=== PATIENT | male | born 1960 | race Caucasian/White ===

== ENCOUNTER → 2017-08-18 | Outpatient (REF) | payer BC ==
[~2017-08-18] MED LIST: KET10 PO; LOR5/325 PO; MULT-885 PO
[2017-08-18 12:49] LABS: PLATELET COUNT, AUTOMATED 288 K/uL (150-450)
== END ==
PROVIDERS: ATTEND Physician Assistant Medical
DX: R07.9 Chest pain, unspecified (principal)
CPT/HCPCS: 82040; 82247; 82310; 82374; 82435; 82565; 82947; 84075; 84132; 84155; 84295; 84450; 84460; 84484; 84520; 85025; 85379

== ENCOUNTER → 2017-08-20 | Outpatient (CLI) | payer BC ==
[~2017-08-20] MED LIST changes: +ATOR40TA69 PO
--- NOTE | 2017-08-20 15:06 | EKG ---
FACILITY: [facility] - [place] PATIENT NAME: SCOTT CARPIO : [id number] MR: [id number] V: [id number] EXAM DATE: ORDERING PHYSICIAN: Carlitos TECHNOLOGIST: ELIZABETH MULLER Test Reason : CHEST DISCOMFORT Blood Pressure : / mmHG Vent. Rate : 083 BPM Atrial Rate : 083 BPM P-R Int : 188 ms QRS Dur : 148 ms QT Int : 408 ms P-R-T Axes : 060 056 040 degrees QTc Int : 479 ms Normal sinus rhythm Right bundle branch block Abnormal ECG No previous ECGs available New RBBB Confirmed by CHRISTINE ALVARADO ([id number]) on 08/21/2017 8:12:14 AM Referred By: Confirmed By:CHRISTINE ALVARADO
== END ==
LOC: RAD 14:41
PROVIDERS: ATTEND Emergency Medicine
DX: R07.9 Chest pain, unspecified (principal); R94.31 Abnormal electrocardiogram [ECG] [EKG]

== ENCOUNTER → 2017-08-28 | Outpatient (CLI) | payer BC ==
[~2017-08-28] MED LIST changes: +ASPI-1471 PO
--- NOTE | 2017-08-29 10:14 | RADIOLOGY IMAGING REPORT ---
FACILITY: [facility] - [place] PATIENT NAME: SCOTT CARPIO : [id number] MR: [id number] V: [id number] EXAM DATE: ORDERING PHYSICIAN: CHRISTINE ALVARADO TECHNOLOGIST: Lyn Bryan EXAMINATION:TWO-DIMENSIONAL ECHOCARDIOGRAPH REASON:HISTORY OF COMPLETE RIGHT BUNDLE BRANCH BLOCK. 2D Measurements (normal values in centimeters) LV endLV endRV endVent.LV PostAorticLeftPercent DiastolicSystolicDiastolicSeptumWallRootAtriumShortening (3.5-5.7)(0.9-2.6)(0.6-1.1)(0.6-1.1)(2.0-3.7)(1.9-4.0)(25-35%) [id number] STROKE VOLUME: 67 mL ESTIMATED EJECTION FRACTION:58% PARASTERNAL LONG AXIS: Overall left ventricular systolic function appears to be normal. The right ventricle appears to be mildly enlarged. The other chamber sizes are normal. Color examination of the valves in this view reveals a trace of mitral insufficiency and some aortic insufficiency present. Right ventricle appears to contract normally. The TAPSE is measured at 2.4. PARASTERNAL SHORT AXIS: Overall left ventricular systolic function appears to be normal. No wall motion abnormalities are noted. The right ventricle appears to be mildly enlarged. Color examination of the pulmonic valve revealed a trace of pulmonic insufficiency. Color examination of the tricuspid valve revealed a trace of tricuspid insufficiency present. APICAL FOUR AND TWO CHAMBER: Normal left ventricular ejection fraction. The right ventricle is mildly enlarged. Left atrium and right atrial volumes are measured within normal range at 20 and 21 ml/m2. Aortic valve area and mitral valve area both measure within normal range at 3.4 and 5.1 cm2 respectively. Tricuspid regurgitation V-max is measured at 1.38 m/sec. Estimated right atrial pressure is 3 mmHg. Some aortic insufficiency is present. SUBCOSTAL VIEW: No pericardial effusion was noted. No atrial septal or ventricular septal defects were appreciated. Doppler examination of the mitral valve in diastole does reveal the A wave greater than the E wave. IVC is normal in size. OVERALL IMPRESSION: 1. Normal left ventricular systolic function estimated ejection fraction of 58% with a grade 1/4 decrease in diastolic function. 2. Mild right ventricular enlargement with all the other chamber sizes being normal. 3. A trileaflet aortic valve with no aortic stenosis and a mild amount of aortic insufficiency. 4. A trace of pulmonic and mitral insufficiency with no other abnormalities of these valves. 5. A trace of tricuspid insufficiency with estimated right ventricular systolic pressure within normal range at 11 mmHg. 6. Right atrial volume and left atrial volumes are measured within normal ranges. Dictated by: Frantz Wallis M.D. on 08/28/2017 at 17:46 Transcribed by: DEVANG on 08/28/2017 at 20:33 Approved by: Frantz Wallis M.D. on 08/29/2017 at 10:13 [facility]
== END ==
LOC: US 02:20
PROVIDERS: ATTEND Emergency Medicine
DX: I51.7 Cardiomegaly (principal); I35.1 Nonrheumatic aortic (valve) insufficiency; I37.1 Nonrheumatic pulmonary valve insufficiency; I34.0 Nonrheumatic mitral (valve) insufficiency; I07.1 Rheumatic tricuspid insufficiency
CPT/HCPCS: 93306

== ENCOUNTER → 2017-09-09 | Outpatient (CLI) | payer BC ==
--- NOTE | 2017-09-09 16:21 | RADIOLOGY IMAGING REPORT ---
FACILITY: [facility] PATIENT NAME: Joce Ornelas : 1960 MR: [id number] V: [id number] EXAM DATE: ORDERING PHYSICIAN: CHRISTINE ALVARADO TECHNOLOGIST: Location: [facility] [place] Patient: Joce Ornelas : 1960 Visit/Account:[id number] Date of Sevice: 09/09/2017 EXAMINATION: Single Isotope SPECT Imaging with Exercise and Gated SPECT Imaging DATE OF EXAMINATION: 09/09/2017 DATE OF INTERPRETATION: 09/09/2017 REQUESTING PHYSICIAN: CHRISTINE ALVARADO INDICATION: The patient is a 56-year-old male evaluated for chest pain. PROCEDURE: After informed consent the patient received an intravenous injection of 12.1 mCi of Tc-9 9m sestamibi followed at the appropriate time interval by rest imaging. The patient then exercised a ccording to the standard [place] protocol for 7 minutes achieving 8 METS. Resting heart rate was 60 bp m with a peak heart rate of 148 bpm which is 90 % of maximal predicted heart rate for age. Blood pr essure at rest was 123 / 71; blood pressure during exercise was 199 / 81. There was no chest pain du ring exercise. Exercise was discontinued because of fatigue. Baseline EKG demonstrates sinus rhythm with right bundle branch block. There were no diagnostic EKG changes of ischemia at peak exercise. Approximately one minute and 30 seconds prior to the termination of exercise, the patient received a n intravenous injection of 30.2 mCi of Tc-99m sestamibi followed by stress imaging. RAW DATA: Examination of the summed raw data revealed a good quality study. MYOCARDIAL PERFUSION: The tomographic images demonstrate normal perfusion rest and stress. GATED IMAGES: The gated images demonstrate normal regional wall motion and thickening, LVEF 72% IMPRESSION: 1. Negative exercise stress ECG for angina or ECG changes of ischemia. Good functional capacity 8 me tabolic equivalents. 2. Normal myocardial perfusion scan. 3. Normal LV systolic function; LVEF 72%. Report Dictated By: Luis Fernando Bermeo MD at 09/09/2017 4:11 PM Report E-Signed By: Luis Fernando Bermeo MD at 09/09/2017 4:16 PM WSN:[id number]
== END ==
LOC: NUC 00:51
PROVIDERS: ATTEND Emergency Medicine
DX: I45.10 Unspecified right bundle-branch block (principal)
CPT/HCPCS: 78452; 93017; A9500

== ENCOUNTER → 2017-09-18 | Outpatient (CLI) | payer BC ==
[~2017-09-18] MED LIST changes: +OSE75 PO
== END ==
LOC: RESP 19:46
PROVIDERS: ATTEND Emergency Medicine
DX: G47.33 Obstructive sleep apnea (adult) (pediatric) (principal); G47.61 Periodic limb movement disorder; G47.36 Sleep related hypoventilation in conditions classified elsewhere; E66.9 Obesity, unspecified

== ENCOUNTER → 2017-10-24 | Outpatient (CLI) | payer BC ==
[2017-10-24 08:03] LABS: PLATELET COUNT, AUTOMATED 276 K/uL (150-450)
== END ==
LOC: LAB 07:38
PROVIDERS: ATTEND Emergency Medicine
DX: D75.1 Secondary polycythemia (principal); Z79.899 Other long term (current) drug therapy
CPT/HCPCS: 36415; 81270; 82465; 83718; 84478; 85025

== ENCOUNTER → 2017-10-30 | Outpatient (CLI) | payer BC ==
[~2017-10-30] MED LIST changes: +ESZ2 PO; +PRAM0.1225 PO
== END ==
LOC: RESP 08:00
PROVIDERS: ATTEND Emergency Medicine
DX: Z02.9 Encounter for administrative examinations, unspecified (principal)

== ENCOUNTER → 2017-11-17 | Outpatient (CLI) | payer BC ==
[~2017-11-17] MED LIST changes: -PRAM0.1225 PO
== END ==
LOC: LAB 17:02
PROVIDERS: ATTEND Emergency Medicine
DX: G47.61 Periodic limb movement disorder (principal)
CPT/HCPCS: 36415; 82607; 82746; 83540; 83550

== ENCOUNTER 2017-12-28 05:45 | Emergency (ER) | payer BC ==
[~2017-12-28 05:45] MED LIST changes: +PRAM0.1225 PO
[2017-12-28] MEDS ORDERED: NS(*) 0.9% 1000 ML BAG 1,000 ML IV ONE (06:08)
--- NOTE | 2017-12-28 06:08 | ER Report ---
History and Physical Time Seen By MD: 05:55 Hx. of Stated Complaint: RIGHT SIDED ABD. PAIN THAT STARTED AROUND 0500 12/28/17 (WINSTON GORDON MD) HPI/ROS CHIEF COMPLAINT: abdominal pain HISTORY OF PRESENT ILLNESS: This is a 57 year old male. He had onset of right sided abdominal pain this morning at about 0500. No radiation. Nothing makes it worse or better. Tried having a bowel movement without relief. No diarrhea, constipation, blood in the stool or melena. No dysuria, hematuria, frequency or urgency. No fevers or chills. Has some nausea, but no vomiting. No chest pain or shortness of breath. No history of abdominal surgeries. No h/o kidney stones. (WINSTON GORDON MD) Allergies: Coded Allergies: No Known Drug Allergies (Unverified , 05/28/13) Home Meds Active Scripts Ondansetron Hcl (ZOFRAN) 4 Mg Tablet, 4 MG PO Q8H for Nausea, #15 TAB 0 Refills Prov:EMILIE KAMARA MD 12/28/17 Oxycodone Hcl/Acetaminophen (PERCOCET 5-325 MG TABLET) 1 Each Tablet, 1 EACH PO Q6H for PAIN, #12 TAB 0 Refills Prov:EMILIE KAMARA MD 12/28/17 Atorvastatin Calcium (ATORVASTATIN CALCIUM) 40 Mg Tablet, 1 TAB PO QDAY, #90 TAB 3 Refills Prov:CHRISTINE ALVARADO MD 09/19/17 Reported Medications Aspirin (ASPIR 81) 81 Mg Tablet.dr, 81 MG PO QDAY, TAB 08/27/17 Discontinued Reported Medications [None] No Conflict Check 05/28/13 Discontinued Scripts Pramipexole Di-Hcl (MIRAPEX) 0.125 Mg Tablet, 0.125 MG PO QHS, #100 TAB Take 1 tab every night for 4 days. Increase by 1 tab every 4 days to a max of 12 tabs a night Prov:CHRISTINE ALVARADO MD 11/20/17 Oseltamivir Phosphate (TAMIFLU) 75 Mg Cap, 75 MG PO DAILY, #10 CAP Prov:CHRISTINE ALVARADO MD 09/30/17 Reviewed Nurses Notes: Yes (WINSTON GORDON MD) Hx Smoking: No Smoking Status: Never Smoker Exposure to Second Hand Smoke?: Yes (both parents smoked) Hx Substance Use Disorder: No Hx Alcohol Use: No (WINSTON GORDON MD) Constitutional Vital Sign - Last 24 Hours 12/28/17 12/28/17 12/28/17 12/28/17 05:49 05:51 06:00 06:15 Temp 97.9 Pulse 71 67 Resp 17 B/P (MAP) 134/75 134/75 (94) 124/90 (101) 124/76 (92) Pulse Ox 91 90 O2 Delivery Room Air 12/28/17 12/28/17 12/28/17 12/28/17 06:30 06:45 07:00 07:15 Pulse 70 B/P (MAP) 112/104 (107) 137/87 (104) 143/86 (105) 143/88 (106) Pulse Ox 92 12/28/17 12/28/17 07:20 07:26 Pulse 65 B/P (MAP) 139/80 (99) Pulse Ox 90 Intake and Output 12/28/17 12/28/17 12/29/17 14:59 22:59 06:59 Intake Total 1000 ml Balance 1000 ml (EMILIE KAMARA MD) Physical Exam General Appearance: The patient is alert. No acute distress. Eyes: Pupils are equal, round. No pallor, injection or icterus. ENT: Mucous membranes are moist. Respiratory: Lungs are clear to auscultation. Cardiovascular: Regular rate and rhythm. No murmurs, gallops or rubs. Gastrointestinal: Abdomen is soft, tender on the right side. Nondistended. No rebound or guarding. No masses or organomegaly. Normal active bowel sounds. No costovertebral angle tenderness with percussion. Neurological: Alert and oriented x3. Skin: Warm and dry. DIFFERENTIAL DIAGNOSIS: After history and physical exam, differential diagnosis was considered for abdominal pain including but not limited to appendicitis, cholecystitis, gastritis and urinary tract infection. (WINSTON GORDON MD) Medical Decision Making Data Points Result Diagram: 12/28/17 0600 12/28/17 0600 Laboratory Hematology Test 12/28/17 05:50 12/28/17 06:00 Urine Color Yellow Urine Clarity Clear Urine pH 5.0 pH (4.8-9.5) Urine Specific [place] 1.023 Urine Protein Negative mg/dL (NEGATIVE) Urine Glucose (UA) Negative mg/dL (NEGATIVE) Urine Ketones Negative mg/dL (NEGATIVE) Urine Blood Moderate (NEGATIVE) Urine Nitrite Negative (NEGATIVE) Urine Bilirubin Negative (NEGATIVE) Urine Urobilinogen Negative mg/dL (0.2-1.9) Urine Leukocyte Esterase Negative (NEGATIVE) Urine RBC 32 /HPF (0-2/HPF) Urine WBC 1 /HPF (0-5/HPF) Urine Squamous Epithelial Cells None /LPF (</=FEW) Urine Bacteria Negative /HPF (NONE-FEW) Urine Mucus Few /HPF (NONE-FEW) Red Blood Count 5.14 M/uL (4.00-5.60) Mean Corpuscular Volume 92.1 fL (80.0-96.0) Mean Corpuscular Hemoglobin 32.8 pg (26.0-33.0) Mean Corpuscular Hemoglobin Concent 35.6 g/dL (32.0-36.0) Red Cell Distribution Width 13.4 % (11.5-14.5) Mean Platelet Volume 6.9 fL (7.2-11.1) Neutrophils (%) (Auto) 67.9 % (39.4-72.5) Lymphocytes (%) (Auto) 18.4 % (17.6-49.6) Monocytes (%) (Auto) 7.8 % (4.1-12.4) Eosinophils (%) (Auto) 4.7 % (0.4-6.7) Basophils (%) (Auto) 1.2 % (0.3-1.4) Nucleated RBC Relative Count (auto) 0.0 /100WBC Neutrophils # (Auto) 6.3 K/uL (2.0-7.4) Lymphocytes # (Auto) 1.7 K/uL (1.3-3.6) Monocytes # (Auto) 0.7 K/uL (0.3-1.0) Eosinophils # (Auto) 0.4 K/uL (0.0-0.5) Basophils # (Auto) 0.1 K/uL (0.0-0.1) Nucleated RBC Absolute Count (auto) 0.00 K/uL Sodium Level 141 mmol/L (137-145) Potassium Level 4.0 mmol/L (3.5-5.0) Chloride Level 102 mmol/L (98-107) Carbon Dioxide Level 25 mmol/L (22-30) Blood Urea Nitrogen 14 mg/dl (9-21) Creatinine 1.10 mg/dl (0.66-1.25) Glomerular Filtration Rate Calc > 60.0 Random Glucose 127 mg/dl (75-110) Lactate 1.2 mmol/L (0.7-2.1) Calcium Level 9.6 mg/dl (8.4-10.2) Total Bilirubin 2.1 mg/dl (0.2-1.3) Aspartate Amino Transf (AST/SGOT) 29 U/L (0-35) Alanine Aminotransferase (ALT/SGPT) 45 U/L (0-56) Alkaline Phosphatase 84 U/L (0-126) C-Reactive Protein 0.6 mg/dl (<1.0) Total Protein 7.6 gm/dl (6.3-8.2) Albumin 4.3 g/dl (3.5-5.0) Amylase Level 101 U/L (0-110) Lipase 114 U/L (23-300) Chemistry Test 12/28/17 05:50 12/28/17 06:00 Urine Color Yellow Urine Clarity Clear Urine pH 5.0 pH (4.8-9.5) Urine Specific [place] 1.023 Urine Protein Negative mg/dL (NEGATIVE) Urine Glucose (UA) Negative mg/dL (NEGATIVE) Urine Ketones Negative mg/dL (NEGATIVE) Urine Blood Moderate (NEGATIVE) Urine Nitrite Negative (NEGATIVE) Urine Bilirubin Negative (NEGATIVE) Urine Urobilinogen Negative mg/dL (0.2-1.9) Urine Leukocyte Esterase Negative (NEGATIVE) Urine RBC 32 /HPF (0-2/HPF) Urine WBC 1 /HPF (0-5/HPF) Urine Squamous Epithelial Cells None /LPF (</=FEW) Urine Bacteria Negative /HPF (NONE-FEW) Urine Mucus Few /HPF (NONE-FEW) White Blood Count 9.3 k/uL (4.5-11.0) Red Blood Count 5.14 M/uL (4.00-5.60) Hemoglobin 16.8 g/dL (14.0-18.0) Hematocrit 47.3 % (42.0-52.0) Mean Corpuscular Volume 92.1 fL (80.0-96.0) Mean Corpuscular Hemoglobin 32.8 pg (26.0-33.0) Mean Corpuscular Hemoglobin Concent 35.6 g/dL (32.0-36.0) Red Cell Distribution Width 13.4 % (11.5-14.5) Platelet Count 261 K/uL (150-450) Mean Platelet Volume 6.9 fL (7.2-11.1) Neutrophils (%) (Auto) 67.9 % (39.4-72.5) Lymphocytes (%) (Auto) 18.4 % (17.6-49.6) Monocytes (%) (Auto) 7.8 % (4.1-12.4) Eosinophils (%) (Auto) 4.7 % (0.4-6.7) Basophils (%) (Auto) 1.2 % (0.3-1.4) Nucleated RBC Relative Count (auto) 0.0 /100WBC Neutrophils # (Auto) 6.3 K/uL (2.0-7.4) Lymphocytes # (Auto) 1.7 K/uL (1.3-3.6) Monocytes # (Auto) 0.7 K/uL (0.3-1.0) Eosinophils # (Auto) 0.4 K/uL (0.0-0.5) Basophils # (Auto) 0.1 K/uL (0.0-0.1) Nucleated RBC Absolute Count (auto) 0.00 K/uL Glomerular Filtration Rate Calc > 60.0 Lactate 1.2 mmol/L (0.7-2.1) Calcium Level 9.6 mg/dl (8.4-10.2) Total Bilirubin 2.1 mg/dl (0.2-1.3) Aspartate Amino Transf (AST/SGOT) 29 U/L (0-35) Alanine Aminotransferase (ALT/SGPT) 45 U/L (0-56) Alkaline Phosphatase 84 U/L (0-126) C-Reactive Protein 0.6 mg/dl (<1.0) Total Protein 7.6 gm/dl (6.3-8.2) Albumin 4.3 g/dl (3.5-5.0) Amylase Level 101 U/L (0-110) Lipase 114 U/L (23-300) Urinalysis Test 12/28/17 05:50 Urine Color Yellow Urine Clarity Clear Urine pH 5.0 pH (4.8-9.5) Urine Specific [place] 1.023 Urine Protein Negative mg/dL (NEGATIVE) Urine Glucose (UA) Negative mg/dL (NEGATIVE) Urine Ketones Negative mg/dL (NEGATIVE) Urine Blood Moderate (NEGATIVE) Urine Nitrite Negative (NEGATIVE) Urine Bilirubin Negative (NEGATIVE) Urine Urobilinogen Negative mg/dL (0.2-1.9) Urine Leukocyte Esterase Negative (NEGATIVE) Urine RBC 32 /HPF (0-2/HPF) Urine WBC 1 /HPF (0-5/HPF) Urine Squamous Epithelial Cells None /LPF (</=FEW) Urine Bacteria Negative /HPF (NONE-FEW) Urine Mucus Few /HPF (NONE-FEW) (EMILIE KAMARA MD) EKG/Imaging Imaging FACILITY: [facility] PATIENT NAME: Joce Ornelas : 1960 MR: [id number] V: [id number] EXAM DATE: ORDERING PHYSICIAN: WINSTON GORDON TECHNOLOGIST: Location: [facility] [place] Patient: Joce Ornelas : 1960 Visit/Account:[id number] Date of Sevice: 12/28/2017 CT of the abdomen and pelvis with contrast: Indication: Right-sided abdominal pain. Technique: Helical CT was performed through the abdomen and pelvis following IV contrast enhancement with 75 cc of Isovue-370. Multiplanar reconstructions are reviewed. One of the following dose optimization techniques was utilized in the performance of this exam: Automated exposure control; adjustment of the mA and/ or kV according to the patient's size; or use of an iterative reconstruction technique. Specific details can be referenced in the facility's radiology CT exam operational policy. Comparison: None. Lower lung calvo: There are minimal atelectatic opacities at the bases. No parenchymal consolidation or pleural effusion is identified. Liver: Normal in size and shape. There may be mild diffuse fatty infiltration. There is uniform enhancement of the venous structures. Gallbladder/biliary tree: Multiple opaque calculi are present in the neck of the gallbladder. The gallbladder does not appear distended. There is no evidence of fluid around the gallbladder. The bile ducts are normal in caliber. Pancreas: Normal in size, shape, and density. There are no signs of acute inflammation or fluid. Spleen: Normal in size, shape, and density. Adrenal glands: Within normal limits. Kidneys/urinary bladder: The kidneys are normal in size, shape, and density. There appears to be mild dilatation of the right ureter and intrarenal collecting structures. There is a 2 mm calculus on the right side of the bladder lumen, which may be recently passed from the right ureter. No additional calculi are observed in the right kidney or ureter. There are no signs of left intrarenal or ureteral calculus. The bladder is otherwise unremarkable. Intestinal structures: Unremarkable, as visualized. There are no signs of obstruction or acute inflammatory changes. The appendix appears normal. Pelvis: Unremarkable. Aorta and vascular structures: Within normal limits. Ascites or fluid collections: None seen. 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 No acute skeletal deformity is clearly identified. Impression: There is a 2 mm calculus in the bladder lumen, which may be recently passed from the right ureter. There appears to be mild dilatation of the right ureter. Multiple opaque calculi are present in the gallbladder. The gallbladder does not appear distended. Report Dictated By: mR Jc MD at 12/28/2017 7:03 AM Report E-Signed By: Rm Jc MD at 12/28/2017 7:17 AM WSN:[id number] (EMILIE KAMARA MD) ED Course/Re-evaluation ED Course 12/28/2017 7:07:04 am I'm awaiting official read of CT scan. Patient is agreeable to pain medicine at this time. Decision to Disposition Date: Dec 28, 2017 Decision to Disposition Time: 07:26 Turned Over I accepted care of the patient at [address] Gordon. Plan is to disposition pending CT scan. (EMILIE KAMARA MD) Depart Departure Latest Vital Signs Vital Signs Date Time Temp Pulse Resp B/P (MAP) Pulse Ox O2 Delivery O2 Flow Rate FiO2 12/28/17 07:26 139/80 (99) 12/28/17 07:20 65 90 12/28/17 05:49 97.9 17 Room Air (EMILIE KAMARA MD) Impression: Primary Impression: Kidney stone Condition: Improved Disposition: HOME OR SELF-CARE Referrals: CHRISTINE ALVARADO MD (PCP) 2 Days if symptoms persist New Scripts Ondansetron Hcl (ZOFRAN) 4 Mg Tablet 4 MG PO Q8H for Nausea, #15 TAB 0 Refills Prov: EMILIE KAMARA MD 12/28/17 Oxycodone Hcl/Acetaminophen (PERCOCET 5-325 MG TABLET) 1 Each Tablet 1 EACH PO Q6H for PAIN, #12 TAB 0 Refills Prov: EMILIE KAMARA MD 12/28/17 Patient Instructions: Kidney Stones (DC) Additional Instructions: Return to the emergency department if your symptoms are not controlled adequately with your pain medication. Return to the emergency department immediately if you develop fever. Follow-up with your primary care provider in 2 -3 days if symptoms persist WINSTON GORDON MD Dec 28, 2017 06:08 EMILIE KAMARA MD Dec 28, 2017 07:06
[2017-12-28 06:15] LABS: PLATELET COUNT, AUTOMATED 261 K/uL (150-450)
[2017-12-28] MEDS ORDERED: IOPAMIDOL 76% 75 ML INFUS BTL 75 ML ONE (06:20)
[2017-12-28] MEDS ORDERED: KETOROLAC 15 MG/ML VIAL IVP ONE ×2 (07:05→07:10)
--- NOTE | 2017-12-28 07:21 | RADIOLOGY IMAGING REPORT ---
FACILITY: [facility] PATIENT NAME: Joce Ornelas : 1960 MR: [id number] V: [id number] EXAM DATE: ORDERING PHYSICIAN: WINSTON IBARRA TECHNOLOGIST: Location: [facility] Patient: Joce Ornelas : 1960 Visit/Account:[id number] Date of Sevice: 12/28/2017 CT of the abdomen and pelvis with contrast: Indication: Right-sided abdominal pain. Technique: Helical CT was performed through the abdomen and pelvis following IV contrast enhancement with 75 cc of Isovue-370. Multiplanar reconstructions are reviewed. One of the following dose optimization techniques was utilized in the performance of this exam: Autom ated exposure control; adjustment of the mA and/or kV according to the patient's size; or use of an i terative reconstruction technique. Specific details can be referenced in the facility's radiology CT exam operational policy. Comparison: None. Lower lung calvo: There are minimal atelectatic opacities at the bases. No parenchymal consolidation or pleural effusion is identified. Liver: Normal in size and shape. There may be mild diffuse fatty infiltration. There is uniform enhan cement of the venous structures. Gallbladder/biliary tree: Multiple opaque calculi are present in the neck of the gallbladder. The gal lbladder does not appear distended. There is no evidence of fluid around the gallbladder. The bile du cts are normal in caliber. Pancreas: Normal in size, shape, and density. There are no signs of acute inflammation or fluid. Spleen: Normal in size, shape, and density. Adrenal glands: Within normal limits. Kidneys/urinary bladder: The kidneys are normal in size, shape, and density. There appears to be mild dilatation of the right ureter and intrarenal collecting structures. There i s a 2 mm calculus on the right side of the bladder lumen, which may be recently passed from the right ureter. No additional calculi are observed in the right kidney or ureter. There are no signs of left intrarenal or ureteral calculus. The bladder is otherwise unremarkable. Intestinal structures: Unremarkable, as visualized. There are no signs of obstruction or acute inflam matory changes. The appendix appears normal. Pelvis: Unremarkable. Aorta and vascular structures: Within normal limits. Ascites or fluid collections: None seen. 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 No acute skeletal deformity is clearly identified. Impression: There is a 2 mm calculus in the bladder lumen, which may be recently passed from the righ t ureter. There appears to be mild dilatation of the right ureter. Multiple opaque calculi are present in the gallbladder. The gallbladder does not appear distended. Report Dictated By: Rm Jc MD at 12/28/2017 7:03 AM Report E-Signed By: Rm Jc MD at 12/28/2017 7:17 AM WSN:[id number]
[2017-12-28] MEDS ORDERED: OXYC-865 PO (07:24)
[2017-12-28] MEDS ORDERED: ONDA4TAB97 PO (07:24)
[2017-12-28 07:26] VITALS: BP 139/80
== END 2017-12-28 07:33 | disposition home or self-care (01) ==
LOC: ER 06:00
DX: N20.0 Calculus of kidney (principal)
CPT/HCPCS: 74177; 81001; 82150; 83605; 83690; 85025; 86140; 96361; 96374; 99284; J1885; J7030; Q9967; 82040; 82247; 82310; 82374; 82435; 82565; 82947; 84075; 84132; 84155; 84295; 84450; 84460; 84520

== ENCOUNTER → 2018-06-09 | Outpatient (CLI) | payer BC ==
[~2018-06-09] MED LIST changes: +CYA1000 PO; +MULT-111 PO; +ONDA4TAB97 PO; +OXYC-865 PO
== END ==
LOC: LAB 15:29
PROVIDERS: ATTEND Emergency Medicine
DX: E83.19 Other disorders of iron metabolism (principal); R17 Unspecified jaundice
CPT/HCPCS: 36415; 82040; 82247; 82248; 83540; 83550; 84075; 84155; 84450; 84460

== ENCOUNTER 2018-07-09 13:18 | Emergency (ER) | payer BC ==
[2018-07-09] MEDS ORDERED: NS(*) 0.9% 1000 ML BAG 1,000 ML IV ONE (13:39)
--- NOTE | 2018-07-09 13:39 | ER Report ---
History and Physical Time Seen By MD: 13:21 Hx. of Stated Complaint: fast heart rate HPI/ROS CHIEF COMPLAINT: Elevated heart rate HISTORY OF PRESENT ILLNESS: 49-year-old male patient presents to emergency room with complaint of elevated heart rate. Patient states that he was at work today and having lunch. He states that he felt extremely lightheaded. He states that after that that he did check his heart rate and that time it was 120-130. He states he continue to watch set for approximately 30-40 minutes during which time it stayed right around 132. Patient states that he has not had any nausea, vomiting, dizziness. Patient states he did have that episode of lightheadedness, but that has resolved at this point in time. Patient denies any recent changes in his medications. He states he does feels that he is having a little bit of a cold, however he is not taking any medication for this. Patient denies having any chest pain at this time. REVIEW OF SYSTEMS: Respiratory: No cough, no dyspnea. Cardiovascular: As noted above Gastrointestinal: No vomiting, no abdominal pain. Musculoskeletal: No back pain. Allergies: Coded Allergies: No Known Drug Allergies (Unverified , 05/28/13) Home Meds Active Scripts Atorvastatin Calcium (ATORVASTATIN CALCIUM) 40 Mg Tablet, 1 TAB PO QDAY, #90 TAB 3 Refills Prov:CHRISTINE URBINA MD 09/19/17 Reported Medications Multivitamin (One-Daily Multi-Vitamin) 1 Each Tablet, 1 TAB PO DAILY 06/09/18 Cyanocobalamin (Vitamin B-12) (VITAMIN B-12) 1,000 Mcg Tablet, 1500 MCG PO DAILY 06/09/18 Aspirin (ASPIR 81) 81 Mg Tablet.dr, 81 MG PO QDAY, TAB 08/27/17 Past Medical/Surgical History Patient has a past medical history of right bundle branch block, hyperlipidemia, back pain. Patient has surgical history of back surgery, knee surgery. Patient has a family medical history of cancer, CAD, smoking. Reviewed Nurses Notes: Yes Hx Smoking: No Smoking Status: Never Smoker Exposure to Second Hand Smoke?: Yes (both parents smoked) Hx Substance Use Disorder: No Hx Alcohol Use: No Constitutional Vital Sign - Last 24 Hours 07/09/18 07/09/18 07/09/18 07/09/18 13:23 13:24 13:30 13:33 Temp 98.1 Pulse 120 Resp 20 B/P (MAP) 177/109 (131) 177/109 156/114 (128) Pulse Ox 85 O2 Delivery Room Air 07/09/18 07/09/18 07/09/18 07/09/18 13:33 13:40 13:46 13:48 Pulse 99 90 Resp 8 8 B/P (MAP) 161/103 (122) Pulse Ox 89 94 O2 Flow Rate 2.0 07/09/18 07/09/18 07/09/18 07/09/18 14:00 14:03 14:08 14:15 Pulse 86 85 Resp 13 11 B/P (MAP) 151/92 (111) 142/89 (106) Pulse Ox 92 93 07/09/18 07/09/18 07/09/18 07/09/18 14:23 14:33 14:38 14:45 Pulse 88 82 Resp 19 19 B/P (MAP) 142/90 (107) 139/79 (99) Pulse Ox 92 93 07/09/18 14:53 Resp 19 Pulse Ox 91 Physical Exam General Appearance: The patient is alert, has no immediate need for airway pr otection and no current signs of toxicity. Respiratory: Chest is non tender, lungs are clear to auscultation. Cardiac: regular rate and rhythm Gastrointestinal: Abdomen is soft and non tender, no masses, bowel sounds normal. Musculoskeletal: Neck: Neck is supple and non tender. Extremities have full range of motion and are non tender. Skin: No rashes or lesions. DIFFERENTIAL DIAGNOSIS: After history and physical exam differential diagnosis was considered for tachycardia, anemia, dehydration, pneumonia, spasm of the intestines surrounding vagus nerve resulting in anxiety. Medical Decision Making Data Points Result Diagram: 07/09/18 1339 07/09/18 1339 Laboratory Hematology Test 07/09/18 13:39 07/09/18 14:29 Red Blood Count 5.83 M/uL (4.00-5.60) Mean Corpuscular Volume 93.3 fL (80.0-96.0) Mean Corpuscular Hemoglobin 32.3 pg (26.0-33.0) Mean Corpuscular Hemoglobin Concent 34.6 g/dL (32.0-36.0) Red Cell Distribution Width 13.3 % (11.5-14.5) Mean Platelet Volume 6.8 fL (7.2-11.1) Neutrophils (%) (Auto) 74.0 % (39.4-72.5) Lymphocytes (%) (Auto) 17.0 % (17.6-49.6) Monocytes (%) (Auto) 6.4 % (4.1-12.4) Eosinophils (%) (Auto) 2.0 % (0.4-6.7) Basophils (%) (Auto) 0.6 % (0.3-1.4) Nucleated RBC Relative Count (auto) 0.1 /100WBC Neutrophils # (Auto) 5.8 K/uL (2.0-7.4) Lymphocytes # (Auto) 1.3 K/uL (1.3-3.6) Monocytes # (Auto) 0.5 K/uL (0.3-1.0) Eosinophils # (Auto) 0.2 K/uL (0.0-0.5) Basophils # (Auto) 0.0 K/uL (0.0-0.1) Nucleated RBC Absolute Count (auto) 0.01 K/uL Sodium Level 138 mmol/L (137-145) Potassium Level 4.4 mmol/L (3.5-5.0) Chloride Level 100 mmol/L (98-107) Carbon Dioxide Level 28 mmol/L (22-30) Blood Urea Nitrogen 16 mg/dl (9-21) Creatinine 1.10 mg/dl (0.66-1.25) Glomerular Filtration Rate Calc > 60.0 Random Glucose 179 mg/dl (75-110) Calcium Level 9.6 mg/dl (8.4-10.2) Total Bilirubin 2.5 mg/dl (0.2-1.3) Aspartate Amino Transf (AST/SGOT) 34 U/L (0-35) Alanine Aminotransferase (ALT/SGPT) 64 U/L (0-56) Alkaline Phosphatase 66 U/L (0-126) Troponin I < 0.012 ng/ml Total Protein 8.5 g/dl (6.3-8.2) Albumin 4.7 g/dl (3.5-5.0) Urine Color Straw Urine Clarity Clear Urine pH 6.0 pH (4.8-9.5) Urine Specific Dawson 1.004 Urine Protein Negative mg/dL (NEGATIVE) Urine Glucose (UA) Negative mg/dL (NEGATIVE) Urine Ketones Negative mg/dL (NEGATIVE) Urine Blood Negative (NEGATIVE) Urine Nitrite Negative (NEGATIVE) Urine Bilirubin Negative (NEGATIVE) Urine Urobilinogen Negative mg/dL (0.2-1.9) Urine Leukocyte Esterase Negative (NEGATIVE) Urine RBC <1 /HPF (0-2/HPF) Urine WBC None /HPF (0-5/HPF) Urine Squamous Epithelial Cells None /LPF (</=FEW) Urine Bacteria Negative /HPF (NONE-FEW) Urine Mucus None /HPF (NONE-FEW) Chemistry Test 07/09/18 13:39 07/09/18 14:29 White Blood Count 7.8 k/uL (4.5-11.0) Red Blood Count 5.83 M/uL (4.00-5.60) Hemoglobin 18.8 g/dL (14.0-18.0) Hematocrit 54.4 % (42.0-52.0) Mean Corpuscular Volume 93.3 fL (80.0-96.0) Mean Corpuscular Hemoglobin 32.3 pg (26.0-33.0) Mean Corpuscular Hemoglobin Concent 34.6 g/dL (32.0-36.0) Red Cell Distribution Width 13.3 % (11.5-14.5) Platelet Count 291 K/uL (150-450) Mean Platelet Volume 6.8 fL (7.2-11.1) Neutrophils (%) (Auto) 74.0 % (39.4-72.5) Lymphocytes (%) (Auto) 17.0 % (17.6-49.6) Monocytes (%) (Auto) 6.4 % (4.1-12.4) Eosinophils (%) (Auto) 2.0 % (0.4-6.7) Basophils (%) (Auto) 0.6 % (0.3-1.4) Nucleated RBC Relative Count (auto) 0.1 /100WBC Neutrophils # (Auto) 5.8 K/uL (2.0-7.4) Lymphocytes # (Auto) 1.3 K/uL (1.3-3.6) Monocytes # (Auto) 0.5 K/uL (0.3-1.0) Eosinophils # (Auto) 0.2 K/uL (0.0-0.5) Basophils # (Auto) 0.0 K/uL (0.0-0.1) Nucleated RBC Absolute Count (auto) 0.01 K/uL Glomerular Filtration Rate Calc > 60.0 Calcium Level 9.6 mg/dl (8.4-10.2) Total Bilirubin 2.5 mg/dl (0.2-1.3) Aspartate Amino Transf (AST/SGOT) 34 U/L (0-35) Alanine Aminotransferase (ALT/SGPT) 64 U/L (0-56) Alkaline Phosphatase 66 U/L (0-126) Troponin I < 0.012 ng/ml Total Protein 8.5 g/dl (6.3-8.2) Albumin 4.7 g/dl (3.5-5.0) Urine Color Straw Urine Clarity Clear Urine pH 6.0 pH (4.8-9.5) Urine Specific Dawson 1.004 Urine Protein Negative mg/dL (NEGATIVE) Urine Glucose (UA) Negative mg/dL (NEGATIVE) Urine Ketones Negative mg/dL (NEGATIVE) Urine Blood Negative (NEGATIVE) Urine Nitrite Negative (NEGATIVE) Urine Bilirubin Negative (NEGATIVE) Urine Urobilinogen Negative mg/dL (0.2-1.9) Urine Leukocyte Esterase Negative (NEGATIVE) Urine RBC <1 /HPF (0-2/HPF) Urine WBC None /HPF (0-5/HPF) Urine Squamous Epithelial Cells None /LPF (</=FEW) Urine Bacteria Negative /HPF (NONE-FEW) Urine Mucus None /HPF (NONE-FEW) Urinalysis Test 07/09/18 14:29 Urine Color Straw Urine Clarity Clear Urine pH 6.0 pH (4.8-9.5) Urine Specific Dawson 1.004 Urine Protein Negative mg/dL (NEGATIVE) Urine Glucose (UA) Negative mg/dL (NEGATIVE) Urine Ketones Negative mg/dL (NEGATIVE) Urine Blood Negative (NEGATIVE) Urine Nitrite Negative (NEGATIVE) Urine Bilirubin Negative (NEGATIVE) Urine Urobilinogen Negative mg/dL (0.2-1.9) Urine Leukocyte Esterase Negative (NEGATIVE) Urine RBC <1 /HPF (0-2/HPF) Urine WBC None /HPF (0-5/HPF) Urine Squamous Epithelial Cells None /LPF (</=FEW) Urine Bacteria Negative /HPF (NONE-FEW) Urine Mucus None /HPF (NONE-FEW) EKG/Imaging EKG Interpretation 12 lead EKG: Rhythm: Sinus tachycardia with ventricular rate of 112 bpm [place]: normal QRS: Right bundle branch block ST segments: normal Imaging Technique: ABDOMEN AP AND ERECT/DECUB HISTORY: light headed Comparison studies: CT abdomen and pelvis December 28, 2017 FINDINGS: Imaged portions of the lung bases are clear. Cholelithiasis is noted. No evidence of organomegaly. Bowel gas pattern is nonobstructive. IMPRESSION: 1. No acute intra-abdominal process. 2. Cholelithiasis. Report Dictated By: Adilson Marie DO at 07/09/2018 2:14 PM Report E-Signed By: Adilson Marie DO at 07/09/2018 2:16 PM Technique: CHEST PA AND LAT HISTORY: Lightheaded Comparison studies: Chest radiographs August 18, 2017 FINDINGS: No acute airspace consolidation. No pleural effusion. The cardiomediastinal silhouette is unchanged. IMPRESSION: 1. No acute cardiopulmonary process. Report Dictated By: Adilson Marie DO at 07/09/2018 2:16 PM Report E-Signed By: Adilson Marie DO at 07/09/2018 2:19 PM ED Course/Re-evaluation ED Course Patient was medicated examined, history and physical were obtained. Differential diagnoses were considered. On examination lungs are clear, heart regular, abdomen soft nontender. Patient originally was tachycardic at 112. A CBC, CMP, urinalysis, EKG, chest x-ray, troponin were done. Labs were unremarkable, troponin was negative, bilirubin was slightly elevated. Chest x-ray and x-ray of the abdomen showed clear lungs, however he did have cholelithiasis with significant stone burden in the gallbladder. An obliquely that that is related with what is happening here. I discussed findings with the patient. We will go ahead and discharge patient home. I believe what happened is that the patient had stimulation of the vagus nerve which caused a decrease in cardiac output. He actually responded with increasing heart rate, however that caused him anxiety which caused the blood pressures. I discussed my findings with the patient. We will go ahead and discharge patient home at this time. He stopped his primary care provider next week. I would like him to follow-up with Dr. Vega to discuss options as far as his cholelithiasis. Patient verbalized understanding and agreement with plan. Decision to Disposition Date: Jul 09, 2018 Decision to Disposition Time: 14:56 Depart Departure Latest Vital Signs Vital Signs Date Time Temp Pulse Resp B/P (MAP) Pulse Ox O2 Delivery O2 Flow Rate FiO2 07/09/18 14:53 19 91 07/09/18 14:45 139/79 (99) 07/09/18 14:38 82 07/09/18 13:40 2.0 07/09/18 13:33 98.1 07/09/18 13:24 Room Air Impression: Primary Impression: Tachycardia Additional Impressions: Cholelithiasis LUQ abdominal pain Hyperbilirubinemia Condition: Improved Disposition: HOME OR SELF-CARE Referrals: CHRITSINE URBINA MD (PCP) Patient Instructions: Tachycardia (ED) Additional Instructions: This appears to be some anxiety related to feeling lightheaded. I think that you had a spasm in the abdomen which stimulated the Vagas nerve that caused your heart rate to slow down, then your heart compensated and caused your heart rate to go up which made you more anxious and kept your heart rate up. We found that your gallbladder is full of stones, I would encourage you to follow up with Dr. Vega to discuss options for that. Increase fluid intake. Get plenty of rest. Return to the ER if condition worsens. Follow up with Dr. Urbina in the next week. Problem Qualifiers Additional Impressions: Cholelithiasis Cholelithiasis location: gallbladder Cholecystitis presence: without cholecystitis Biliary obstruction: without biliary obstruction Qualified Codes: K80.20 - Calculus of gallbladder without cholecystitis without obstruction ZBIGNIEW GREGORY Jul 09, 2018 13:39
--- NOTE | 2018-07-09 13:44 | EKG ---
FACILITY: [facility] PATIENT NAME: SCOTT CARPIO : [id number] MR: [id number] V: [id number] EXAM DATE: ORDERING PHYSICIAN: ZBIGNIEW GREGORY TECHNOLOGIST: SUSHANT Slaughter Reason : TACHYCARDIA Blood Pressure : / mmHG Vent. Rate : 112 BPM Atrial Rate : 112 BPM P-R Int : 182 ms QRS Dur : 142 ms QT Int : 414 ms P-R-T Axes : 057 055 037 degrees QTc Int : 565 ms Sinus tachycardia Possible Left atrial enlargement Right bundle branch block Diffuse ST-T abnormalities Abnormal ECG No previous ECGs available Confirmed by SULEMAN BLANC ([id number]) on 07/09/2018 3:32:48 PM Referred By: CYN Confirmed By:SULEMAN BLANC
[2018-07-09 13:54] LABS: PLATELET COUNT, AUTOMATED 291 K/uL (150-450)
--- NOTE | 2018-07-09 14:21 | RADIOLOGY IMAGING REPORT ---
FACILITY: [facility] PATIENT NAME: Joce Ornelas : 1960 MR: [id number] V: [id number] EXAM DATE: ORDERING PHYSICIAN: ZBIGNIEW GREGORY TECHNOLOGIST: Location: [facility] Patient: Joce Ornelas : 1960 Visit/Account:[id number] Date of Sevice: 07/09/2018 Technique: ABDOMEN AP AND ERECT/DECUB HISTORY: light headed Comparison studies: CT abdomen and pelvis December 28, 2017 FINDINGS: Imaged portions of the lung bases are clear. Cholelithiasis is noted. No evidence of orga nomegaly. Bowel gas pattern is nonobstructive. IMPRESSION: 1. No acute intra-abdominal process. 2. Cholelithiasis. Report Dictated By: Adilson Marie DO at 07/09/2018 2:14 PM Report E-Signed By: Adilson Marie DO at 07/09/2018 2:16 PM WSN:[email or web address]
--- NOTE | 2018-07-09 14:24 | RADIOLOGY IMAGING REPORT ---
FACILITY: [facility] PATIENT NAME: Joce Ornelas : 1960 MR: [id number] V: [id number] EXAM DATE: ORDERING PHYSICIAN: ZBIGNIEW GREGORY TECHNOLOGIST: Location: [facility] Patient: Joce Ornelas : 1960 Visit/Account:[id number] Date of Sevice: 07/09/2018 Technique: CHEST PA AND LAT HISTORY: Lightheaded Comparison studies: Chest radiographs August 18, 2017 FINDINGS: No acute airspace consolidation. No pleural effusion. The cardiomediastinal silhouette is unchanged. IMPRESSION: 1. No acute cardiopulmonary process. Report Dictated By: Adilson Marie DO at 07/09/2018 2:16 PM Report E-Signed By: Adilson Marie DO at 07/09/2018 2:19 PM WSN:[email or web address]
[2018-07-09 14:45] VITALS: BP 139/79
== END 2018-07-09 15:08 | disposition home or self-care (01) ==
LOC: ER 13:45
DX: R00.0 Tachycardia, unspecified (principal); K80.20 Calculus of gallbladder without cholecystitis without obstruction; R10.12 Left upper quadrant pain; E80.6 Other disorders of bilirubin metabolism
CPT/HCPCS: 71046; 74019; 81001; 84484; 85025; 93005; 96360; 99284; J7030; 82040; 82247; 82310; 82374; 82435; 82565; 82947; 84075; 84132; 84155; 84295; 84450; 84460; 84520

== ENCOUNTER 2018-08-04 00:15 | Day surgery (SDC) | payer BC ==
[~2018-08-04] VITALS: Ht 188 cm; Wt 118.4 kg
[2018-08-04] MEDS ORDERED: METOCLOPRAMIDE 10 MG/2 ML SDV ONE (09:33)
[2018-08-04] MEDS ORDERED: DEXAMETHASONE SOD 4 MG/ML VIAL ONE (09:33)
[2018-08-04] MEDS ORDERED: LIDOCAINE MPF 1% 5 ML VIAL ONE (09:33)
[2018-08-04] MEDS ORDERED: fentaNYL CITR 250 MCG/5 ML AMP ONE (09:33)
[2018-08-04] MEDS ORDERED: PROPOFOL EMUL(*) 10MG/ML 20 ML 40 ML ONE (09:33)
[2018-08-04] MEDS ORDERED: ONDANSETRON 4 MG/2 ML VIAL ONE (09:33)
[2018-08-04] MEDS: NORMOSOL R SOLN(*) 1000 ML BAG 1,000 ML IV PRN ×2 (09:40→13:55)
[2018-08-04] MEDS ORDERED: SUGAMMADEX SOD 500 MG/5 ML SDV ONE (09:53)
--- NOTE | 2018-08-04 10:05 | EKG ---
FACILITY: [facility] [place] PATIENT NAME: SCOTT CARPIO : [id number] MR: [id number] V: [id number] EXAM DATE: ORDERING PHYSICIAN: CLEVE DOSS TECHNOLOGIST: MATA Slaughter Reason : LAPCHOLE Blood Pressure : / mmHG Vent. Rate : 073 BPM Atrial Rate : 073 BPM P-R Int : 176 ms QRS Dur : 154 ms QT Int : 434 ms P-R-T Axes : 055 076 047 degrees QTc Int : 478 ms Normal sinus rhythm Right bundle branch block Abnormal ECG When compared with ECG of 09-JUL-2018 13:23, Vent. rate has decreased BY 39 BPM Confirmed by MILLIE HUMPHREY ([id number]) on 08/04/2018 2:17:02 PM Referred By: ECHO Confirmed By:MILLIE HUMPHREY
[2018-08-04 10:07] VITALS: BP 132/93
[2018-08-04] MEDS ORDERED: LIDOCAINE/SOD BICARB 8.4% SYR ID ONE (10:20)
[2018-08-04] MEDS ORDERED: FAMOTIDINE 20 MG TAB PO ONE (10:20)
[2018-08-04] MEDS ORDERED: MIDAZOLAM 2 MG/2 ML VIAL IVP PRN (10:20)
[2018-08-04] MEDS ORDERED: ceFAZolin(*) 1 GM VIAL 3 GM in NS(*) 0.9% 100 ML BAG 100 ML IVPB ONE (10:30)
[2018-08-04] MEDS ORDERED: BUPIVACAINE/EPI 0.5% 50ML VIAL INFIL ONE (10:33)
[2018-08-04] MEDS ORDERED: IOPAMIDOL 61% 75 ML INFUS BTL 0 ML ONE (10:47)
[2018-08-04] MEDS ORDERED: IOPAMIDOL 61% 75 ML INFUS BTL 75 ML ONE (11:07)
[2018-08-04] MEDS ORDERED: fentaNYL CITR 100 MCG/2 ML AMP ONE (12:20)
[2018-08-04] MEDS ORDERED: KETOROLAC 30 MG/ML VIAL ONE (12:36)
--- NOTE | 2018-08-04 13:25 | Short(Outpt) Discharge Summary ---
Discharge Summary Reason for Hosp/Final Diag: (1) Cholelithiasis Status: Chronic Hospital Course & Plan: 57 yo m presented for lap deandra and ioc. he tolerated the procedure well and there were no complications. he will be discharged home when criteria are met. Departure Discharge to: Home Discharge Instructions Home Meds Active Scripts Atorvastatin Calcium (ATORVASTATIN CALCIUM) 40 Mg Tablet, 1 TAB PO QDAY, #90 TAB 3 Refills Prov:CHRISTINE ALVARADO MD 09/19/17 Reported Medications Multivitamin (One-Daily Multi-Vitamin) 1 Each Tablet, 1 TAB PO DAILY 06/09/18 Cyanocobalamin (Vitamin B-12) (VITAMIN B-12) 1,000 Mcg Tablet, 1500 MCG PO DAILY 06/09/18 Aspirin (ASPIR 81) 81 Mg Tablet.dr, 81 MG PO QDAY, TAB 08/27/17 Diet: Regular Special Instructions: no lifting more than 15 lbs for 3 wks ok to remove bandages and shower in 2 days. steri strips will fall off after about 10 days. call office to make 2 wk follow up appt ([phone]) VILMA DODGE Aug 04, 2018 13:25
--- NOTE | 2018-08-04 13:30 | RADIOLOGY IMAGING REPORT ---
FACILITY: [facility] [place] PATIENT NAME: Joce Ornelas : 1960 MR: [id number] V: [id number] EXAM DATE: ORDERING PHYSICIAN: VILMA DODGE TECHNOLOGIST: Location: [facility] [place] Patient: Joce Ornelas : 1960 Visit/Account:[id number] Date of Sevice: 08/04/2018 C-ARM FLUORO 1 HR HISTORY: CHOLANGIOGRAM Intraoperative cholangiogram FINDINGS: Intraoperative cholangiogram demonstrates a well-opacified common duct with no filling defects. Free spillage into the duodenum. IMPRESSION: 1. Intraoperative films as described. Fluoroscopic time of 17.4 seconds. DAP [id number] Report Dictated By: Minh Wing MD at 08/04/2018 1:16 PM Report E-Signed By: Minh Wing MD at 08/04/2018 1:26 PM WSN:[email or web address]
[2018-08-04] MEDS ORDERED: TRAM-420 PO (13:40)
[2018-08-04] MEDS ORDERED: ACETAMINOPHEN(*)1000 MG/100 ML 100 ML IVPB ONE (13:46)
--- NOTE | 2018-08-04 14:00 | Post Operative Progress Note ---
Post Operative Progress Note Date: Aug 04, 2018 Time: 13:50 Surgeon: roxy mcmullen md Principal Android Developer: none Anesthesia: gen, local dr. [place] Pre-Op Diagnosis: symptomatic cholelithiasis Post-Op Diagnosis: same Findings: cholelithiasis Procedure(s): lap deandra, ioc Specimen Removed:(May be N/A): gallbladder Complications: none Fluids: iv crystalloid Estimated Blood Loss: minimal Date OP Note Dictated: Aug 04, 2018 Time OP Note Dictated: 13:51 VILMA MCMULLEN Aug 04, 2018 14:00
--- NOTE | 2018-08-04 14:23 | OPERATIVE REPORT 1 ---
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 PREOPERATIVE DIAGNOSIS Symptomatic cholelithiasis. POSTOPERATIVE DIAGNOSIS Symptomatic cholelithiasis. PROCEDURE PERFORMED Laparoscopic cholecystectomy and intraoperative cholangiogram. FLUIDS IV Crystalloid ESTIMATED BLOOD LOSS Minimal. SPECIMENS Gallbladder. COMPLICATIONS None, INDICATIONS This is a 57-year-old male with right upper quadrant pain who says he has been feeling poorly for over a month. His states he has felt poorly for close to a year. Imaging revealed cholelithiasis. He also had an elevated bilirubin. Risk and benefits of the procedure explained and consent was signed. DESCRIPTION OF PROCEDURE The patient was taken to the operating room and placed in the supine position. General anesthesia was administered per the anesthesia team. The patient was prepped and draped in the normal sterile fashion. Local analgesia was injected in the dermis above the umbilicus and a 5 mm vertical incision was made. The umbilical stump was grasped and elevated. Veress needle was inserted. Pneumoperitoneum was achieved. The Veress needle was removed. A 5 mm port was advanced. After injecting local analgesia under direct vision a 12 mm subxiphoid, and two 5 mm right sided ports were placed. I inspected the abdomen and there was no injury upon entry. The fundus of the gallbladder was grasped and retracted superiorly and laterally. Fatty adhesions were taken down with electrocautery. The infundibulum was then grasped and retracted. Electrocautery was used to free the cystic duct and cystic artery of surrounding tissue. Both structures were seen going directly to the gallbladder. Clips were placed on the cystic artery and it was divided sharply between clips. There were three clips on the proximal aspect of the artery. Flores clamp and needle were then used to perform a cholangiogram which showed good filling of the hepatic ducts, good filling of the common bile duct without any visualized stone and good flow into the duodenum. Flores clamp and needle were then removed. The gallbladder was taken off the liver bed with electrocautery. This was removed with an EndoCatch bag through the subxiphoid port site. The right upper quadrant was irrigated and suctioned and the irrigant returned clear. Hemostasis was assured. The fascial closure device with an 0 Vicryl stitch was used to close the fascia. The subxiphoid port site, two right upper quadrant ports were removed under direct vision. Hemostasis was assured. Pneumoperitoneum was relieved. The final port was removed. All skin incisions were closed with 4-0 Monocryl subcuticular stitches. More local analgesia was injected. Appropriate dressings were applied. The patient tolerated the procedure well. There were no complications. [facility]
[2018-08-04 14:24] VITALS: BP 135/78
[2018-08-04 14:30] VITALS: BP 139/81
[2018-08-04 14:45] VITALS: BP 124/83
[2018-08-04 14:56] VITALS: BP 135/75
[2018-08-04 14:57] VITALS: BP 135/81
== END 2018-08-04 14:24 | disposition home or self-care (01) ==
LOC: OR 00:15
PROVIDERS: ATTEND Surgery
DX: K80.20 Calculus of gallbladder without cholecystitis without obstruction (principal)
CPT/HCPCS: 47563; 76000; 88304; 93005; J0131; J0690; J1100; J1885; J2001; J2405; J2704; J2765; J3010; J7050; Q9967

== ENCOUNTER 2018-08-11 11:19 | Emergency (ER) | payer BC ==
[~2018-08-11 11:19] MED LIST changes: +TRAM-420 PO
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
[2018-08-11 12:06] LABS: PLATELET COUNT, AUTOMATED 342 K/uL (150-450)
--- NOTE | 2018-08-11 12:15 | EKG ---
FACILITY: [facility] PATIENT NAME: SCOTT CARPIO : [id number] MR: [id number] V: [id number] EXAM DATE: ORDERING PHYSICIAN: EMILIE KAMARA TECHNOLOGIST: POLLY Test Reason : TACHY Blood Pressure : / mmHG Vent. Rate : 110 BPM Atrial Rate : 111 BPM P-R Int : 184 ms QRS Dur : 144 ms QT Int : 360 ms P-R-T Axes : 062 056 026 degrees QTc Int : 487 ms Sinus tachycardia Possible Left atrial enlargement Right bundle branch block Abnormal ECG When compared with ECG of 04-AUG-2018 09:52, Vent. rate has increased BY 37 BPM Confirmed by CLEVE WEBER ([id number]) on 08/11/2018 7:01:44 PM Referred By: ASAD Confirmed By:CLEVE WEBER
[2018-08-11 12:37] LABS: INR 0.94
--- NOTE | 2018-08-11 12:51 | RADIOLOGY IMAGING REPORT ---
FACILITY: [facility] PATIENT NAME: Joce Ornelas : 1960 MR: [id number] V: [id number] EXAM DATE: ORDERING PHYSICIAN: EMILIE KAMARA TECHNOLOGIST: Location: Patient: Joce Ornelas : 1960 Visit/Account:[id number] Date of Sevice: 08/11/2018 CHEST SINGLE AP AP portable upright 11:59 AM COMPARISON: None. HISTORY: Chest Pain FINDINGS: CARDIAC/VASC: No cardiac silhouette abnormality or cardiomegaly. Unremarkable pulmonary vasculatu re. MEDIASTINUM: No visible mass or adenopathy. LUNGS/PLEURA: No pneumothorax. No significant pulmonary parenchymal abnormalities. No costophrenic angle blunting to suggest a large effusion. BONES: No fracture or visible bony lesion. OTHER: Monitor leads are present bilaterally. IMPRESSION: No acute cardiopulmonary process. Report Dictated By: Sunil Oakley at 08/11/2018 12:45 PM Report E-Signed By: Sunil Oakley at 08/11/2018 12:45 PM WSN:[id number]
--- NOTE | 2018-08-12 19:15 | RT HOLTER TEST ---
[place] [facility] [place] NAME: SCOTT CARPIO : [id number] MR: [id number] V: [id number] EXAM DATE: ORDERING PHYSICIAN: RUPA PRIETO TECHNOLOGIST: Len Hook-up date: 2018-08-11 16:18:00 Duration: 24:07:00 Test Indications: Tachycardia Medications: N/A [id number] QRS complexes 4 Ventricular ectopics which represent <1 % of total QRS comp. 1 Supraventricular ectopics which represent <1 % of total QRS comp. * Paced QRS complexes which represent % of total QRS comp. VENTRICULAR ECTOPY 4 Isolated 0 Bigeminal Cycles 0 Couplets 0 Runs 0 Beats in Runs * Beats LONGEST at * BPM at :: -- * Beats FASTEST at * BPM at :: -- SUPRAVENTRICULAR ECTOPY 1 Isolated 0 Couplets 0 Runs 0 Beats in Runs * Beats LONGEST at * BPM at :: -- * Beats FASTEST at * BPM at :: -- HEART RATES 51 MIN at 00:43:45 2018-08-12 78 AVG 141 MAX at 15:28:35 2018-08-12 LONGEST RR 1.200 secs at 00:43:44 2018-08-12 S-T LEVELS Channel 1 -12.800 mm MIN at 16:18:00 2018-08-11 -12.800 mm MAX at 16:18:00 2018-08-11 Channel 2 -12.800 mm MIN at 16:18:00 2018-08-11 -12.800 mm MAX at 16:18:00 2018-08-11 Channel 3 -12.800 mm MIN at 16:18:00 2018-08-11 -12.800 mm MAX at 16:18:00 2018-08-11 Sinus rhythym throughout the test. Very infrequent isolated PVC. Occasional sinus tachycardia, appears appropriate given diary entries. Negative halter test. Confirmed by Estevan Irene ([id number]) on 08/12/2018 7:15:37 PM Referred By: Carlitos Overread By: Estevan Magdaleno
== END 2018-08-11 16:30 | disposition home or self-care (01) ==
LOC: ER 11:25
DX: R00.0 Tachycardia, unspecified (principal)
CPT/HCPCS: 36415; 71045; 81001; 82040; 82247; 82310; 82374; 82435; 82565; 82947; 83735; 84075; 84132; 84155; 84295; 84450; 84460; 84484; 84520; 85025; 85610; 85730; 93005; 93225; 99284

== ENCOUNTER → 2018-11-13 | Outpatient (CLI) | payer BC ==
[~2018-11-13] MED LIST changes: +FLUT16SP19
== END ==
LOC: AUD 10:00
PROVIDERS: ATTEND Otolaryngology
DX: H69.83 Other specified disorders of Eustachian tube, bilateral (principal)
CPT/HCPCS: 92557; 92570